=== PATIENT | female | born 1965 | race Caucasian/White ===

== ENCOUNTER 2016-09-29 15:13 | Emergency (ER) | payer OTHER ==
[2016-09-29 21:00] LABS: HEMOGLOBIN 15.6 gm/dl (12.3-15.3); RED BLOOD COUNT 4.86 M/UL (4.00-5.10); WHITE BLOOD COUNT 8.4 K/UL (4.5-11.0)
[2016-09-29 21:17] LABS: BUN/CREATININE RATIO 15 (0-10)
== END 2016-09-30 | disposition home or self-care (01) ==
LOC: ER1 15:13
PROVIDERS: Family Medicine
DX: G89.29 Other chronic pain (principal); M35.9 Systemic involvement of connective tissue, unspecified; E11.9 Type 2 diabetes mellitus without complications; R20.0 Anesthesia of skin; F17.200 Nicotine dependence, unspecified, uncomplicated; Z79.84 Long term (current) use of oral hypoglycemic drugs; Z88.0 Allergy status to penicillin; Z88.5 Allergy status to narcotic agent
CPT/HCPCS: 36415; 80053; 81001; 85025; 86140; 87077; 87086; 87186; 96374; 96375; 99283; J1642; J2270; J2405; J2930

== ENCOUNTER → 2017-01-01 | Outpatient (CLI) | payer OTHER ==
[~2017-01-01] VITALS: Ht 166.4 cm; Wt 92.5 kg
== END ==
LOC: OPSV 12-31 13:00
DX: G61.81 Chronic inflammatory demyelinating polyneuritis (principal)
CPT/HCPCS: 96365; 96366; J1568; J1642